=== PATIENT | female | born 1970 | race Two or more races ===

== ENCOUNTER 2020-05-19 08:13 | Inpatient (IN) | payer OTHER ==
[2020-05-19] MEDS ORDERED: ACETAMINOPHEN 1000 MG/100 ML VIAL (NON FORMULARY) IVPB ONE (09:34)
[2020-05-19] MEDS ORDERED: methylPREDNISolone NA SUCC 125 MG/2 ML VIAL IVPB ONE (09:34)
[2020-05-19] MEDS ORDERED: SODIUM CHLORIDE 500 ML IV SCH (09:45)
[2020-05-19] MEDS ORDERED: ACETAMINOPHEN INJECTION 100 ML IVPB ONE (09:48)
[2020-05-19] MEDS ORDERED: methylPREDNISolone NA SUCC 125 MG/2 ML VIAL ONE (09:49)
[2020-05-19 11:11] LABS: BASO % 0.5 % (0-2.0); EOS % 5.1 % (0-4.5); HEMATOCRIT 37.6 % (32.4-45.2); HEMOGLOBIN 12.1 GM/dL (10.7-15.3); LYMPH % 12.5 % (8-40); MCH 29.5 pg (25.7-33.7); MCHC 32.1 g/dl (32.0-36.0); MEAN CELL VOLUME 91.7 fl (80-96); MEAN PLT VOLUME 9.8 fl (7.5-11.1); MONO % 5.4 % (3.8-10.2); NEUT % 76.5 % (42.8-82.8); PLATELET COUNT 351 K/MM3 (134-434); RDW 16.3 % (11.6-15.6); WHITE BLOOD COUNT 7.5 K/mm3 (4.0-10.0)
[2020-05-19 11:30] LABS: POTASSIUM 4.5 mmol/L (3.5-5.1)
[2020-05-19 11:32] LABS: ALBUMIN 3.2 g/dl (3.4-5.0); BLOOD UREA NITROGEN 13.9 mg/dL (7-18); CALCIUM 8.9 mg/dL (8.5-10.1)
[2020-05-19 11:35] LABS: CREATININE 1.3 mg/dL (0.55-1.3)
[2020-05-19 11:37] LABS: BILIRUBIN,TOTAL 0.5 mg/dL (0.2-1)
[2020-05-19 13:53] LABS: HIV INTERPRETATION NEGATIVE (NEGATIVE)
[2020-05-19 14:54] LABS: SYPHILIS W/ RPR CONF NON-REACTIVE (NONREACTIVE)
[2020-05-19 15:11] LABS: MAGNESIUM 2.1 mg/dL (1.8-2.4)
[2020-05-19 15:16] LABS: PHOSPHOROUS 3.8 mg/dL (2.5-4.9)
[2020-05-19 16:53] VITALS: BMI 39.9
[2020-05-19] MEDS ORDERED: diphenhydrAMINE HCL 25 MG CAPSULE (FP) PO PRN (17:15)
[2020-05-19] MEDS ORDERED: LORazepam 1 MG TABLET PO ONE (17:32)
[2020-05-19] MEDS ORDERED: ENOXAPARIN NA (PORCINE) 40 MG/0.4 ML DISP.SYRIN SQ SCH (17:45)
[2020-05-19] MEDS ORDERED: clonazePAM 0.5 MG TABLET PO PRN (22:00)
[2020-05-19] MEDS ORDERED: MINERAL OIL/PET HY-PHL TOPICAL OINTMENT 454 GM JAR TP SCH (22:00)
[2020-05-19] MEDS ORDERED: TRIAMCINOLONE ACET 0.1% CREAM 15 GM TUBE TP SCH (22:00)
[2020-05-19 22:21] VITALS: BP 111/66; PULSE 114; TEMP 99
[2020-05-20] MEDS ORDERED: methylPREDNISolone NA SUCC 40 MG/1 ML VIAL IVPUSH SCH (10:00)
[2020-05-21 00:09] LABS: CYCLIC CITRULLINE PEPTIDE AB 5 units (0-19)
== END 2020-05-20 03:30 | disposition short-term general hospital (02) | DRG 607 ==
LOC: JER 08:13 → JERBED 12:37 → J6S 16:23
PROVIDERS: ADMIT Internal Medicine; ATTEND Internal Medicine
DX: L53.9 Erythematous condition, unspecified (principal); I42.8 Other cardiomyopathies; F41.8 Other specified anxiety disorders; I44.7 Left bundle-branch block, unspecified; J45.909 Unspecified asthma, uncomplicated; L80 Vitiligo; L30.9 Dermatitis, unspecified; E66.9 Obesity, unspecified; Z68.38 Body mass index [BMI] 38.0-38.9, adult; L29.8 Other pruritus; L20.89 Other atopic dermatitis
CPT/HCPCS: 36415; 71045-TC-FY; 80053; 83735; 84100; 84443; 85025; 85651; 86038; 86140; 86200; 86225; 86226; 86618; 86780; 87389; 93005; 93010; 99285-25; C9803; J0131; U0003

== ENCOUNTER 2020-07-01 12:17 | Emergency (ER) | payer OTHER ==
[2020-07-01 12:27] VITALS: BP 107/72; PULSE 86; TEMP 97.7; BMI 37.8
[2020-07-01] MEDS ORDERED: diazePAM 5 MG TABLET PO ONE (13:23)
[2020-07-01] MEDS ORDERED: diazePAM 5 MG TABLET ONE (13:26)
== END 2020-07-01 18:30 | disposition left against medical advice (07) ==
LOC: JER 12:17
DX: S22.080A Wedge compression fracture of T11-T12 vertebra, initial encounter for closed fracture (principal)
CPT/HCPCS: 72070-TC-FY; 72128-TC; 99284-25

== ENCOUNTER 2020-07-04 11:01 | Emergency (ER) | payer OTHER ==
[2020-07-04 11:23] VITALS: BP 118/74; PULSE 83; TEMP 97.7; BMI 37.8
[2020-07-04] MEDS ORDERED: POLYETHYLENE GLYCOL 3350 119 GM BTL PO ONE (12:11)
== END 2020-07-04 16:51 | disposition home or self-care (01) ==
LOC: JER 11:01
DX: S22.080A Wedge compression fracture of T11-T12 vertebra, initial encounter for closed fracture (principal)
CPT/HCPCS: 72146-TC; 99284-25